=== PATIENT | female | born 1940 | race Caucasian/White ===

== ENCOUNTER 2024-01-15 11:11 | Day surgery (SDC) | payer MEDICARE ==
[2024-01-11 11:23] LABS: BASOPHILS % (AUTO) 0.6 % (0-1); EOSINOPHILS # (AUTO) 0.1 X10'3 (0-0.9); EOSINOPHILS % (AUTO) 2.1 % (0-6); LYMPHOCYTES # (AUTO) 1.1 X10'3 (1.1-4.8); LYMPHOCYTES % (AUTO) 19.8 % (21-51); MEAN CORPUSCULAR HEMOGLOBIN 30.4 PG (27.0-31.0); MEAN CORPUSCULAR HGB CONC 33.7 g/dL (33.0-36.5); MEAN CORPUSCULAR VOLUME 90.1 FL (78-98); MEAN PLATELET VOLUME 8.3 FL (7.4-10.4); MONOCYTES # (AUTO) 0.5 X10'3 (0-0.9); NEUTROPHILS % (AUTO) 69.5 % (42-75); PRE OP HEMATOCRIT 40.7 % (35.0-45.0); PRE OP HEMOGLOBIN 13.7 g/dL (12.0-16.0); PRE OP PLATELET COUNT 226 X10'3 (140-440); PRE OP WHITE BLOOD COUNT 5.8 10'3 (4.8-10.8); RED BLOOD COUNT 4.52 X10'6 (4.20-5.60); RED CELL DISTRIBUTION WIDTH 13.6 % (11.5-14.5)
[2024-01-11 11:41] LABS: ALBUMIN 3.5 G/DL (3.4-5.0); ALBUMIN/GLOBULIN RATIO 0.9 (1.1-1.5); ALKALINE PHOSPHATASE 43 IU/L (46-116); BLOOD UREA NITROGEN 20 MG/DL (7-18); BUN/CREATININE RATIO 27.8 (10.0-20.0); CALCIUM 9.2 MG/DL (8.5-10.1); CHLORIDE 103 MMOL/L (99-107); CREATININE 0.72 MG/DL (0.40-0.90); PRE OP ALT 25 U/L (30-65); PRE OP ANION GAP 7 (8-16); PRE OP AST 26 U/L (10-37); PRE OP BILIRUB, TOTAL 0.3 MG/DL (0.0-1.0); PRE OP GLUCOSE 97 MG/DL (70-104); PRE OP SODIUM 137 MMOL/L (135-145); TOTAL CARBON DIOXIDE 26.7 MMOL/L (24-32); TOTAL PROTEIN 7.3 G/DL (6.4-8.2); eGFR 78 ML/MIN
[2024-01-15] VITALS (10 sets, daily range): BP systolic 135–157; BP diastolic 65–84; PULSE 56–73; RESP 12–16; TEMP 98.3; O2SAT 95–100
[~2024-01-15] VITALS: Ht 154.9 cm; Wt 57.7 kg
[2024-01-15] MEDS: DOCUMENT DATE & TIME OF BETA-BLOCKER PO ONE (08:00)
[~2024-01-15 11:11] MED LIST: ALPR-623 PO; DENO60DI SUBCUT; ESCI-8 PO; LOP25T PO; PRAV80TA3 PO
[2024-01-15] MEDS ORDERED: ondansetron/PF 4mg/2ml inj IV PRN (12:20)
[2024-01-15] MEDS ORDERED: morphine 4 MG/ML inj SYRINge IV PRN (12:20)
[2024-01-15] MEDS ORDERED: morphine 2 MG/ML inj. syringe IV PRN (12:20)
[2024-01-15] MEDS ORDERED: fentaNYL/PF 50MCG/1 ML 2ML syringe IV PRN ×2 (12:20)
[2024-01-15] MEDS ORDERED: hydrALAZINE 20mg/ml inj. IV PRN (12:20)
[2024-01-15] MEDS ORDERED: ringers solution, lacted 1,000 ML IV SCH (12:20)
[2024-01-15] MEDS ORDERED: labetalol 20mg/4ml (5mg/ml) syringe IV PRN (12:20)
[2024-01-15] MEDS: ringers solution, lacted 1,000 ML IV SCH (12:40)
[2024-01-15] MEDS: cefazolin 2gm/D5W 100mL 100 ML IV ONE (12:40)
[2024-01-15] MEDS: famotidine 20mg tablet PO ONE (12:41)
[2024-01-15] MEDS ORDERED: BUPIVAcaine/PF 2.5mg/ml (0.25%) 10ml vial ONE (13:14)
[2024-01-15] MEDS ORDERED: LIDOcaine 1% (10mg/ml)w/preservative inj. 20ml MDV ONE (13:14)
[2024-01-15] MEDS ORDERED: sevoflurane 250ml liquid IH ONE (13:33)
[2024-01-15] MEDS ORDERED: propofol inj 20 ML IV ONE (13:37)
[2024-01-15] MEDS ORDERED: ondansetron/PF 4mg/2ml inj ONE (13:37)
[2024-01-15] MEDS ORDERED: LIDOcaine 2% (20mg/ml) 5ml vial ONE (13:37)
[2024-01-15] MEDS ORDERED: midazolam 1 mg/ML 2ml injection ONE (13:37)
[2024-01-15] MEDS ORDERED: rocuronium 10mg/ml inj IV ONE (13:37)
[2024-01-15] MEDS ORDERED: fentaNYL/PF 50MCG/1 ML 2ML syringe ONE (13:37)
[2024-01-15] MEDS ORDERED: dexamethasone sod phosphate 4mg/ml inj. ONE (13:37)
[2024-01-15] MEDS ORDERED: acetaminophen 1,000mg/100ml IV 0 ML IV ONE (13:49)
[2024-01-15] MEDS ORDERED: acetaminophen 1,000mg/100ml IV 100 ML IV ONE (13:49)
[2024-01-15] MEDS: BUPIVAcaine 2.5mg/ml inj 50ml vial (contains preservative) SQ ONE (13:56)
[2024-01-15] MEDS ORDERED: oxyCODONE/APAP 5-325mg tablet PO PRN (14:55)
[2024-01-15] MEDS: oxyCODONE/APAP 5-325mg tablet PO ONE (15:33)
== END 2024-01-15 15:46 | disposition home or self-care (01) ==
LOC: PAS 11:11
PROVIDERS: ATTEND Surgery
DX: C78.6 Secondary malignant neoplasm of retroperitoneum and peritoneum (principal); I10 Essential (primary) hypertension; E11.9 Type 2 diabetes mellitus without complications; E78.5 Hyperlipidemia, unspecified; F41.9 Anxiety disorder, unspecified; F32.A Depression, unspecified; M81.0 Age-related osteoporosis without current pathological fracture; Z86.73 Personal history of transient ischemic attack (TIA), and cerebral infarction without residual deficits; Z79.899 Other long term (current) drug therapy; Z90.49 Acquired absence of other specified parts of digestive tract; Z90.89 Acquired absence of other organs; Z98.890 Other specified postprocedural states; Z88.5 Allergy status to narcotic agent; Z91.040 Latex allergy status; Z88.8 Allergy status to other drugs, medicaments and biological substances; Z80.3 Family history of malignant neoplasm of breast; Z82.5 Family history of asthma and other chronic lower respiratory diseases; Z82.49 Family history of ischemic heart disease and other diseases of the circulatory system; Z83.3 Family history of diabetes mellitus; Z82.61 Family history of arthritis
CPT/HCPCS: 36415; 58662; 80053; 82948; 85025; 88341; 93005; J0131; J0690; J1100; J2250; J2405; J2704; J2710; J3010; J3490; J7030; J7120; Z7506; Z7508; Z7512; 88305; 88342; A4215; A4618; A7000